=== PATIENT | female | born 1985 | race Caucasian/White ===

== ENCOUNTER → 2016-11-16 | Outpatient (CLI) | payer MEDICARE, MEDICAID ==
--- NOTE | 2016-11-16 17:31 | REP ---
OB ULTRASOUND: REASON: Evaluate placenta. COMPARISON: None. Multiple sonographic images of the gravid uterus show a single living intrauterine gestation in the cephalic presentation. The placenta is posterior with evidence of complete placenta previa. Doppler interrogation of the heart shows a heart rate of 157 beats per minute. The subjective aminotic fluid volume is within normal limits. The cervix measures 3.1 cm in length and it is closed. Evaluation of the maternal adnexal spaces showed no abnormalities. The umbilical cord is seen draping over the neck area. A nuchal cord can not be ruled out by this exam. BPD 7.9 cm = 31 weeks 4 days HC 28.2 cm = 30 weeks 6 days AC 25.6 cm = 29 weeks 5 days FL 6.0 cm = 31 weeks 0 days Estimated weight is 1567 grams which is at the 49th percentile for a 30 week 1 day gestational age. The calculated amniotic fluid index is 15.0 within expected range of 9.0-23.4. The fetus was too large for a complete anatomical screen. Evaluation of the anatomical structures showed o evidence of an anomaly, however the choroid plexus and left ventricular outflow tract were not well imaged. IMPRESSION: Single living intrauterine gestation as described above with an estimated gestational age of 30 weeks 5 days via composite criteria and an estimated date of delivery of 01/20/2017 by today's exam. A complete placenta previa was identified. anatomical screen as described above. Clinical correlation and close followup is recommended. Signed by Richar Belle DO 11/17/2016 05:19 P
== END ==
LOC: M RAD 13:32
PROVIDERS: ATTEND Obstetrics & Gynecology
DX: Z36 Encounter for antenatal screening of mother (principal); Z3A.30 30 weeks gestation of pregnancy

== ENCOUNTER → 2016-12-09 | Outpatient (CLI) | payer MEDICARE, MEDICAID ==
[2016-12-09 19:52] LABS: ALBUMIN 2.3 GM/DL (3.2-5.2); ALBUMIN/GLOBULIN RATIO 0.55 (1.00-1.93); BILIRUBIN,DIRECT 0.3 MG/DL (0.0-0.2); BILIRUBIN,TOTAL 0.4 MG/DL (0.2-1.0); TOTAL PROTEIN 6.5 GM/DL (6.4-8.2)
== END ==
LOC: M SMT 15:09
PROVIDERS: ATTEND Specialist
DX: O26.613 Liver and biliary tract disorders in pregnancy, third trimester (principal); Z3A.00 Weeks of gestation of pregnancy not specified

== ENCOUNTER 2016-12-23 07:43 | Outpatient (CLI) | payer MEDICARE, MEDICAID ==
[~2016-12-23] VITALS: Ht 152.4 cm; Wt 82.0 kg
[2016-12-23 08:10] VITALS: BP 111/65
[2016-12-23] MEDS ORDERED: ONDANSETRON 4 MG ORAL DISINTEGRATING TAB (S0181) PO PRN (09:00)
[2016-12-23] MEDS ORDERED: ALLE24TA8 PO (09:21)
[2016-12-23] MEDS ORDERED: PRENTAB9 PO (09:21)
[2016-12-23 09:23] LABS: MEAN CORPUSCULAR HEMOGLOBIN 30.9 pg (27.0-33.0); MEAN CORPUSCULAR HGB CONC 33.9 g/dl (32.0-36.5); MEAN CORPUSCULAR VOLUME 91.1 fl (80.0-96.0); RED CELL DISTRIBUTION WIDTH 13.8 % (11.5-14.5); WHITE BLOOD COUNT 9.8 K/mm3 (4.0-10.0)
[2016-12-23 09:48] LABS: ALBUMIN 2.2 GM/DL (3.2-5.2); ALBUMIN/GLOBULIN RATIO 0.55 (1.00-1.93); BILIRUBIN,DIRECT 0.1 MG/DL (0.0-0.2); BILIRUBIN,TOTAL 0.3 MG/DL (0.2-1.0); TOTAL PROTEIN 6.2 GM/DL (6.4-8.2)
[2016-12-23 10:04] VITALS: BP 121/75
== END 2016-12-23 11:40 | disposition home or self-care (01) ==
LOC: M LDO 07:43
PROVIDERS: ATTEND Advanced Practice Midwife
DX: O99.89 Other specified diseases and conditions complicating pregnancy, childbirth and the puerperium (principal); Z3A.35 35 weeks gestation of pregnancy; K52.9 Noninfective gastroenteritis and colitis, unspecified; Z88.0 Allergy status to penicillin; R11.2 Nausea with vomiting, unspecified; R19.7 Diarrhea, unspecified

== ENCOUNTER → 2018-07-15 | Outpatient (REF) | payer MEDICARE, MEDICAID ==
[~2018-07-15] MED LIST: ALLE24TA8 PO; PRENTAB9 PO
== END ==
LOC: M LAB REF 16:45
PROVIDERS: ATTEND Specialist
DX: Z34.81 Encounter for supervision of other normal pregnancy, first trimester (principal); Z3A.12 12 weeks gestation of pregnancy; N39.9 Disorder of urinary system, unspecified

== ENCOUNTER → 2018-08-18 | Outpatient (REF) | payer MEDICARE, MEDICAID | LOC: M LAB REF 13:00 | PROVIDERS: ATTEND Advanced Practice Midwife | DX: Z34.82 Encounter for supervision of other normal pregnancy, second trimester (principal); Z3A.00 Weeks of gestation of pregnancy not specified ==

== ENCOUNTER 2018-12-04 21:20 | Outpatient (CLI) | payer MEDICARE, MEDICAID ==
[~2018-12-04] VITALS: Ht 152.4 cm; Wt 81.7 kg
[~2018-12-04 21:20] MED LIST changes: +ALLE24TA7 PO; -ALLE24TA8 PO
[2018-12-04 21:41] VITALS: BP 105/64
[2018-12-04 22:39] VITALS: BP 101/62
== END 2018-12-04 22:45 | disposition home or self-care (01) ==
LOC: M LDO 21:20
PROVIDERS: ATTEND Specialist
DX: O26.893 Other specified pregnancy related conditions, third trimester (principal); R10.2 Pelvic and perineal pain; O47.03 False labor before 37 completed weeks of gestation, third trimester; Z3A.33 33 weeks gestation of pregnancy

== ENCOUNTER 2018-12-12 16:57 | Outpatient (CLI) | payer MEDICARE, MEDICAID ==
[~2018-12-12] VITALS: Ht 152.4 cm; Wt 82.6 kg
[2018-12-12] MEDS ORDERED: ONDA4TAB6 PO (17:09)
[2018-12-12 17:15] VITALS: BP 88/50
[2018-12-12 17:58] VITALS: BP 114/64
[2018-12-12 19:40] VITALS: BP 112/67
--- NOTE | 2018-12-12 20:37 | REPVR ---
EXAM: US Biophysical Profile Without Non-Stress Test EXAM DATE/TIME: 12/12/2018 7:30 PM CLINICAL HISTORY: 33 years old, female; Signs and symptoms; status abnormalities: ; movements, decreased; Single gestation; Third trimester (28 wks 0 days until delivery); ; Additional info: Decreased movements TECHNIQUE: Imaging protocol: US biophysical profile without non-stress testing. COMPARISON: US OBS SINGEL GEST 11/16/2016 1:42 PM FINDINGS: Other findings: Single intrauterine fetus in cephalic presentation. heartbeat of 128 beats per minute. Closed cervix measuring 4.1 cm. Anterior placenta. The DADA is 13.7 cm and adequate for a score of 2. breathing movements are present for a score of 2. movement is present for a score of 2. tone was normal for a score of 2. Total biophysical profile score is 8/8. Breathin/2 Gross body movements: 2/2 tone: 2/2 Qualitative amniotic fluid: 2/2 IMPRESSION: 1. Normal biophysical profile score of 8/8. 2. Single live intrauterine fetus in cephalic presentation. 3. Normal DADA of 13.7 cm. Electronically signed by: Deangelo Wiggins On 12/12/2018 20:36:40 PM
--- NOTE | 2018-12-12 21:15 | IPNPDOC ---
Text Note Date of Service The patient was seen on 12/12/18. NOTE Subjective: Patient is a 33-year-old female who is a at 34.2 weeks gestation with and CAITLYN of 01/21/19 based off of her LMP and consistent with her first trimester ultrasound. She initiated care in her first trimester with [facility]. Her has been complicated by a history of a section. She presents to L&D with complaints of decreased movement. She reports only having 5 movements in the morning until afternoon. She denies contractions, leaking of fluid, or vaginal bleeding. The first 1.5 hours she reported 6 movements and the last hour she was here she reported 13 movements in an hour. Objective: VS and ultrasound: see below. FHR: 120, moderate variability, positive accelerations, no decelerations. Contractions: occasional. A+O x3. Regular respirations. Abdomen gravid and nontender to touch. Assessment: IUP at 34.2 weeks gestation, Category I FHR tracing, decreased movements Plan: Patient discharged to home after BPP of 02/23. Patient has an appointment on Wednesday and instructed to keep appointment. Reviewed access to care, kick count, labor signs, and danger signs to report. VS,Fishbone, I+O VS, Fishbone, I+O Vital Signs Date Time Temp Pulse Resp B/P (MAP) Pulse Ox O2 Delivery O2 Flow Rate FiO2 12/12/18 19:40 97.1 71 16 112/67 (82) EXAM: US Biophysical Profile Without Non-Stress Test EXAM DATE/TIME: 12/12/2018 7:30 PM CLINICAL HISTORY: 33 years old, female; Signs and symptoms; status abnormalities: ; movements, decreased; Single gestation; Third trimester (28 wks 0 days until delivery); ; Additional info: Decreased movements TECHNIQUE: Imaging protocol: US biophysical profile without non-stress testing. COMPARISON: US OBS SINGEL GEST 11/16/2016 1:42 PM FINDINGS: Other findings: Single intrauterine fetus in cephalic presentation. heartbeat of 128 beats per minute. Closed cervix measuring 4.1 cm. Anterior placenta. The DADA is 13.7 cm and adequate for a score of 2. breathing movements are present for a score of 2. movement is present for a score of 2. tone was normal for a score of 2. Total biophysical profile score is 8/8. Breathin/2 Gross body movements: 2/2 tone: 2/2 Qualitative amniotic fluid: 2/2 IMPRESSION: 1. Normal biophysical profile score of 8/8. 2. Single live intrauterine fetus in cephalic presentation. 3. Normal DADA of 13.7 cm. Electronically signed by: Deangelo Wiggins On 12/12/2018 20:36:40 PM ALFONZO CORONA CNM December 12, 2018 21:15
== END 2018-12-12 20:05 | disposition home or self-care (01) ==
LOC: M LDO 16:57
PROVIDERS: ATTEND Advanced Practice Midwife
DX: O36.8130 Decreased fetal movements, third trimester, not applicable or unspecified (principal); Z3A.34 34 weeks gestation of pregnancy

== ENCOUNTER → 2018-12-30 | Outpatient (REF) | payer MEDICARE, MEDICAID ==
[~2018-12-30] MED LIST changes: +ONDA4TAB6 PO
== END ==
LOC: M LAB REF 17:05
PROVIDERS: ATTEND Advanced Practice Midwife
DX: Z36.85 Encounter for antenatal screening for Streptococcus B (principal); Z3A.00 Weeks of gestation of pregnancy not specified

== ENCOUNTER 2019-01-15 01:08 | Inpatient (IN) | payer MEDICARE, MEDICAID ==
[~2019-01-15] VITALS: Ht 152.4 cm; Wt 86.1 kg
[2019-01-15] VITALS (48 sets, daily range): BP systolic 76–130; BP diastolic 49–78
[2019-01-15] MEDS ORDERED: LACTATED RINGER'S 1000 ML IV STA (01:39)
[2019-01-15 01:55] LABS: HEMATOCRIT 39.4 % (36.0-47.0); HEMOGLOBIN 13.1 g/dl (12.0-15.5); MEAN CORPUSCULAR HEMOGLOBIN 30.4 pg (27.0-33.0); MEAN CORPUSCULAR HGB CONC 33.2 g/dl (32.0-36.5); MEAN CORPUSCULAR VOLUME 91.4 fl (80.0-96.0); PLATELET COUNT, AUTOMATED 163 10^3/uL (150-450); RED BLOOD COUNT 4.31 10^6/uL (4.00-5.40); WHITE BLOOD COUNT 10.4 10^3/uL (4.0-10.0)
[2019-01-15] MEDS ORDERED: BUTORPHANOL 2 MG/ML INJ (J0595) IV ONE (02:00)
[2019-01-15] MEDS ORDERED: PROMETHAZINE INJ 25 MG/ML VIAL (J2550) IV ONE (02:00)
[2019-01-15] MEDS ORDERED: LR 1,000 ML IV SCH ×3 (02:30→13:30)
[2019-01-15] MEDS ORDERED: OXYTOCIN DRIP 30 UNITS in IV 1 EA IV SCH ×2 (05:15→13:30)
[2019-01-15] MEDS ORDERED: OXYTOCIN 30 UNITS IN 0.9% NaCl 500ML IV BAG (J2590) As Ordered ONE (05:24)
[2019-01-15] MEDS ORDERED: FENTANYL 2MCG/ML ROPIVACAINE 0.2% IN 0.9% NACL 100ML IVBAG As Ordered ONE (08:55)
[2019-01-15] MEDS ORDERED: diphenhydrAMINE INJ 50MG/ML VIAL (J1200) IV PRN (10:45)
[2019-01-15] MEDS ORDERED: ONDANSETRON 4MG/2ML VIAL (J2405) IV PRN ×2 (10:45→13:30)
[2019-01-15] MEDS ORDERED: EPIDURAL COMMENT XX SCH (10:45)
[2019-01-15] MEDS ORDERED: NALOXONE INJ 0.4 MG/1 ML VIAL (J2310) IV PRN (10:45)
[2019-01-15] MEDS ORDERED: ePHEDrine SULFATE 25 MG/5 ML(5MG/ML) SYRINGE IV PRN (10:45)
[2019-01-15] MEDS ORDERED: REFRIGERATOR IV KEYS XX PRN (10:45)
[2019-01-15] MEDS ORDERED: EPIDURAL/PCA KEYS XX PRN (10:45)
[2019-01-15] MEDS ORDERED: LACTATED RINGER'S 1000 ML IV PRN (10:45)
[2019-01-15] MEDS ORDERED: FENTANYL/ROPIVACAINE/NACL BAG 100 ML EPIDURAL SCH (10:45)
[2019-01-15 13:04] LABS: CORD GAS ABE A -8.3; CORD GAS ABE V -6.1; CORD GAS HCO3 A 23.7 MEQ/L; CORD GAS HCO3 V 25.1 MEQ/L; CORD GAS O2 SAT A 23.1 %; CORD GAS O2 SAT V 26.5 %; CORD GAS PCO2 A 79.4 mmHg; CORD GAS PCO2 V 75.5 mmHg; CORD GAS PH A 7.092 UNITS; CORD GAS PH V 7.14 UNITS; CORD GAS PO2 A 15.9 mmHg; CORD GAS SBC A 16.2 MEQ/L; CORD GAS SBC V 17.8 MEQ/L; CORD GAS TCO2 A 26.1 MEQ/L; CORD GAS TCO2 V 27.4 MEQ/L
[2019-01-15] MEDS ORDERED: MEASLES,MUMPS,RUBELLA VACCINE INJ (MMR-II) (90707) SC SCH (13:30)
[2019-01-15] MEDS ORDERED: ACETAMINOPHEN 500 MG TAB PO PRN (13:30)
[2019-01-15] MEDS ORDERED: PROMETHAZINE 25 MG TAB PO PRN (13:30)
[2019-01-15] MEDS ORDERED: IBUPROFEN 600 MG TAB PO PRN (13:30)
[2019-01-15] MEDS ORDERED: DIBUCAINE 1% OINTMENT 30GM TOP PRN (13:30)
[2019-01-15] MEDS ORDERED: DOCUSATE SODIUM 100 MG CAP PO PRN (13:30)
[2019-01-15] MEDS ORDERED: RHOGAM 300 MCG (1500 IU) INJ (J2790) IM SCH (13:30)
[2019-01-15 15:07] LABS: HEMATOCRIT 32.6 % (36.0-47.0); HEMOGLOBIN 10.4 g/dl (12.0-15.5); MEAN CORPUSCULAR HEMOGLOBIN 30.5 pg (27.0-33.0); MEAN CORPUSCULAR HGB CONC 31.9 g/dl (32.0-36.5); MEAN CORPUSCULAR VOLUME 95.6 fl (80.0-96.0); PLATELET COUNT, AUTOMATED 174 10^3/uL (150-450); RED BLOOD COUNT 3.41 10^6/uL (4.00-5.40); WHITE BLOOD COUNT 19.2 10^3/uL (4.0-10.0)
[2019-01-15 15:17] LABS: INR 0.97; PROTHROMBIN TIME 12.6 SECONDS (11.8-14.0)
[2019-01-15 15:18] LABS: PARTIAL THROMBOPLASTIN TIME 22.8 SECONDS (25.0-38.4)
--- NOTE | 2019-01-15 15:20 | REP ---
Clinical: Chest pain and tachycardia . Comparison: None . Findings: The mediastinum and cardiac silhouette are stable and within normal limits for portable technique. The lung east are clear without acute consolidation, effusion, or pneumothorax. Skeletal structures are intact. Impression: No acute cardiopulmonary process appreciated. Electronically Signed by Paresh Russo MD 01/15/2019 03:12 P
[2019-01-15 15:33] LABS: ALBUMIN 1.7 GM/DL (3.2-5.2); ALT/SGPT 40 U/L (12-78); BILIRUBIN,TOTAL 0.3 MG/DL (0.2-1.0); BLOOD UREA NITROGEN 11 MG/DL (7-18); CALCIUM LEVEL 7.7 MG/DL (8.5-10.1); CARBON DIOXIDE LEVEL 23 MEQ/L (21-32); CHLORIDE LEVEL 109 MEQ/L (98-107); CK-MB VALUE MASS 17.1 NG/ML (<3.6); CPK CREATINE PHOSPHOKINASE 515 U/L (26-192); GLOMERULAR FILTRATION RATE > 60.0 (>60); GLUCOSE, FASTING 155 MG/DL (70-100); MB/CK RELATIVE INDEX 3.32 (< OR =4); POTASSIUM SERUM 5.2 MEQ/L (3.5-5.1); SODIUM LEVEL 139 MEQ/L (136-145); TOTAL PROTEIN 4.7 GM/DL (6.4-8.2); TROPONIN I < 0.02 NG/ML (< 0.10)
[2019-01-15] MEDS: IBUPROFEN 800 MG TAB PO PRN ×2 (16:35→23:42)
[2019-01-15] MEDS: ACETAMINOPHEN TAB 650MG DOSE (2X325MG) PO PRN ×2 (19:21→23:16)
[2019-01-16 00:15] VITALS: BP 113/70
--- NOTE | 2019-01-16 01:26 | ECGEPIP ---
[facility] Test Date: 2019-01-15 Pat Name: SOHAN BROWN Department: Room: [place] [address] Gender: Female Hospice Rn: SILVIA : [id number] Requested By: SOLOMON Quiroz Order Number: [id number] Reading MD: Av Diehl Measurements Intervals [place] Rate: 103 P: 47 NV: 132 QRS: 60 QRSD: 75 T: 13 QT: 337 QTc: 442 Interpretive Statements SINUS TACHYCARDIA ABNORMAL RHYTHM ECG No prior tracing in the system Electronically Signed on 01-16-2019 1:25:58 EDT by Av Diehl
[2019-01-16] MEDS: IBUPROFEN 800 MG TAB PO PRN ×2 (05:37→14:15)
[2019-01-16 06:00] VITALS: BP 109/63
[2019-01-16] MEDS ORDERED: IBUP80TA PO (08:25)
[2019-01-16] MEDS ORDERED: PRENATAL VITAMINS CHEWABLE TABLET PO SCH (09:00)
[2019-01-16] MEDS ORDERED: MOM 30ML SUSPENSION UDC PO ONE (11:30)
== END 2019-01-16 18:25 | disposition home or self-care (01) | DRG 807 ==
LOC: M LDO 01:08 → M LDI 01:24 → M OBS 23:50
PROVIDERS: ADMIT Obstetrics & Gynecology; ATTEND Obstetrics & Gynecology
PROC: 10D07Z3 Extraction of Products of Conception, Low Forceps, Via Natural or Artificial Opening (ICD-10-PCS; principal; 2019-01-15)
PROC: 0KQM0ZZ Repair Perineum Muscle, Open Approach (ICD-10-PCS; 2019-01-15)
DX: O34.211 Maternal care for low transverse scar from previous cesarean delivery (principal); Z37.0 Single live birth; Z3A.39 39 weeks gestation of pregnancy; O70.1 Second degree perineal laceration during delivery; O76 Abnormality in fetal heart rate and rhythm complicating labor and delivery

== ENCOUNTER → 2019-08-28 | Outpatient (CLI) | payer MEDICARE, MEDICAID ==
[~2019-08-28] MED LIST changes: +IBUP80TA PO
[2019-08-28 11:59] LABS: HEMATOCRIT 47.3 % (36.0-47.0); HEMOGLOBIN 14.7 g/dl (12.0-15.5); MEAN CORPUSCULAR HEMOGLOBIN 29.2 pg (27.0-33.0); MEAN CORPUSCULAR HGB CONC 31.1 g/dl (32.0-36.5); PLATELET COUNT, AUTOMATED 238 10^3/uL (150-450); RED BLOOD COUNT 5.03 10^6/uL (4.00-5.40); WHITE BLOOD COUNT 6.3 10^3/uL (4.0-10.0)
[2019-08-28 12:43] LABS: ALBUMIN 4.1 GM/DL (3.2-5.2); ALT/SGPT 77 U/L (12-78); BILIRUBIN,TOTAL 0.6 MG/DL (0.2-1.0); BLOOD UREA NITROGEN 19 MG/DL (7-18); CALCIUM LEVEL 9.3 MG/DL (8.5-10.1); CARBON DIOXIDE LEVEL 30 MEQ/L (21-32); CHLORIDE LEVEL 104 MEQ/L (98-107); CREATININE FOR GFR 0.83 MG/DL (0.55-1.30); FREE T4 0.97 NG/DL (0.76-1.46); GLOMERULAR FILTRATION RATE > 60.0 (>60); GLUCOSE, FASTING 80 MG/DL (70-100); POTASSIUM SERUM 4.5 MEQ/L (3.5-5.1); SODIUM LEVEL 138 MEQ/L (136-145); THYROID STIMULATING HORMONE 0.288 uIU/ML (0.358-3.740); TOTAL PROTEIN 7.8 GM/DL (6.4-8.2)
== END ==
LOC: M PLALAB 10:18
PROVIDERS: ATTEND Specialist
DX: R53.83 Other fatigue (principal)
CPT/HCPCS: 36415; 80053; 84439; 84443; 85027; G0463

== ENCOUNTER → 2021-12-10 | Outpatient (CLI) | payer MEDICARE, MEDICAID ==
[2021-12-10 17:11] LABS: HEMATOCRIT 41.7 % (36.0-47.0); HEMOGLOBIN 13.9 g/dl (12.0-15.5); MEAN CORPUSCULAR HEMOGLOBIN 30.5 pg (27.0-33.0); MEAN CORPUSCULAR HGB CONC 33.3 g/dl (32.0-36.5); MEAN CORPUSCULAR VOLUME 91.4 fl (80.0-96.0); PLATELET COUNT, AUTOMATED 260 10^3/uL (150-450); RED BLOOD COUNT 4.56 10^6/uL (4.00-5.40)
[2021-12-10 18:14] LABS: HEPATITIS C VIRUS ABY INDEX 0.1 INDEX (<0.8); HIV 1&2 SCREEN CENTAUR NEGATIVE (NEGATIVE)
== END ==
LOC: M PLALAB 15:23
PROVIDERS: ATTEND Obstetrics & Gynecology
DX: O26.21 Pregnancy care for patient with recurrent pregnancy loss, first trimester (principal)

== ENCOUNTER → 2022-02-05 | Outpatient (CLI) | payer MEDICARE, MEDICAID | LOC: M WHC 15:52 | PROVIDERS: ATTEND Specialist | DX: Z34.82 Encounter for supervision of other normal pregnancy, second trimester (principal) ==

== ENCOUNTER → 2022-03-04 | Outpatient (CLI) | payer MEDICARE, MEDICAID | LOC: M WHC 13:22 | PROVIDERS: ATTEND Specialist | DX: Z34.82 Encounter for supervision of other normal pregnancy, second trimester (principal); Z3A.20 20 weeks gestation of pregnancy ==

== ENCOUNTER → 2022-05-28 | Outpatient (CLI) | payer MEDICARE, MEDICAID | LOC: M WHC 13:23 | PROVIDERS: ATTEND Specialist | DX: O44.43 Low lying placenta NOS or without hemorrhage, third trimester (principal); Z3A.00 Weeks of gestation of pregnancy not specified ==

== ENCOUNTER → 2022-06-24 | Outpatient (REF) | payer MEDICARE, MEDICAID | LOC: M SFHCWAGY 13:31 | PROVIDERS: ATTEND Specialist | DX: Z34.83 Encounter for supervision of other normal pregnancy, third trimester (principal) ==

== ENCOUNTER 2022-06-30 15:46 | Outpatient (CLI) | payer MEDICARE, MEDICAID ==
[~2022-06-30] VITALS: Ht 152.4 cm; Wt 88.5 kg
[2022-06-30] MEDS ORDERED: FERR325T81 PO (16:13)
[2022-06-30] MEDS ORDERED: tumeric PO (16:13)
[2022-06-30] MEDS ORDERED: magnesium PO (16:13)
[2022-06-30 16:15] VITALS: BP 119/72
[2022-06-30] MEDS ORDERED: ACETAMINOPHEN 500 MG TAB PO PRN (16:50)
[2022-06-30 17:21] VITALS: BP 150/74
[2022-06-30 17:54] VITALS: BP 107/61
[2022-06-30 18:01] LABS: APPEARANCE, URINE MANUAL HAZY (CLEAR); COLOR, URINE MANUAL YELLOW (YELLOW)
[2022-06-30 18:02] LABS: BILIRUBIN, URINE MANUAL NEGATIVE (NEGATIVE); BLOOD URINE MANUAL NEGATIVE (NEGATIVE); GLUCOSE, URINE (UA) MANUAL NEGATIVE (NEGATIVE); KETONE, URINE MANUAL 2+ mg/dL (NEGATIVE); LEUKOCYTE ESTERASE, URINE MAN TRACE (NEGATIVE); NITRITE, URINE MANUAL NEGATIVE (NEGATIVE); PH,URINE MAN 5.5 UNITS (5.0 - 7.0); PROTEIN, URINE MANUAL TRACE mg/dL (NEGATIVE); SPECIFIC GRAVITY,URINE MANUAL 1.025 (1.002-1.035); UROBILINOGEN, URINE MANUAL NORMAL (NORMAL)
[2022-06-30 18:15] LABS: BACTERIA, URINE LARGE AMOUNT; CALCIUM OXALATE CRYSTALS,URINE SMALL AMOUNT /hpf; MUCUS, URINE LARGE AMOUNT (NEGATIVE); SQUAMOUS EPITHELIAL CELL URINE LARGE AMOUNT /hpf (SMALL AMT); YEAST, URINE MOD AMOUNT
[2022-06-30 18:16] LABS: HYALINE CAST, URINE NONE SEEN /lpf (0-1)
[2022-06-30 18:32] VITALS: BP 146/83
[2022-06-30 19:03] VITALS: BP 132/79
== END 2022-06-30 19:10 | disposition home or self-care (01) ==
LOC: M LDO 15:46
PROVIDERS: ATTEND Obstetrics & Gynecology
DX: O47.1 False labor at or after 37 completed weeks of gestation (principal); O26.893 Other specified pregnancy related conditions, third trimester; M54.50 Low back pain, unspecified; O09.513 Supervision of elderly primigravida, third trimester; Z3A.37 37 weeks gestation of pregnancy
CPT/HCPCS: 59025; 81000; 87086; G0378

== ENCOUNTER 2022-07-08 08:46 | Outpatient (CLI) | payer MEDICARE, MEDICAID ==
[~2022-07-08] VITALS: Ht 152.4 cm; Wt 89.4 kg
[~2022-07-08 08:46] MED LIST changes: +FERR325T81 PO; +magnesium PO; +tumeric PO
[2022-07-08 09:06] VITALS: BP 119/75
[2022-07-08 09:41] VITALS: BP 125/71
[2022-07-08] MEDS ORDERED: LACTATED RINGER'S 1000 ML IV ONE (09:45)
[2022-07-08] MEDS ORDERED: LR 1,000 ML IV SCH (09:50)
[2022-07-08] MEDS ORDERED: HOME MED LIST COMPLETE! XX SCH (09:55)
[2022-07-08 10:43] LABS: HEMATOCRIT 38.1 % (36.0-47.0); HEMOGLOBIN 12.3 g/dl (12.0-15.5); MEAN CORPUSCULAR HEMOGLOBIN 30.1 pg (27.0-33.0); MEAN CORPUSCULAR HGB CONC 32.3 g/dl (32.0-36.5); MEAN CORPUSCULAR VOLUME 93.2 fl (80.0-96.0); PLATELET COUNT, AUTOMATED 168 10^3/uL (150-450); RED BLOOD COUNT 4.09 10^6/uL (4.00-5.40); WHITE BLOOD COUNT 9.7 10^3/uL (4.0-10.0)
[2022-07-08 11:14] VITALS: BP 115/62
[2022-07-08 13:05] VITALS: BP 132/75
[2022-07-08 14:34] VITALS: BP 120/59
== END 2022-07-08 13:30 | disposition home or self-care (01) ==
LOC: M LDO 08:46
PROVIDERS: ATTEND Advanced Practice Midwife
DX: O47.1 False labor at or after 37 completed weeks of gestation (principal); O09.513 Supervision of elderly primigravida, third trimester; O34.219 Maternal care for unspecified type scar from previous cesarean delivery; O99.113 Other diseases of the blood and blood-forming organs and certain disorders involving the immune mechanism complicating pregnancy, third trimester; Z86.711 Personal history of pulmonary embolism; Z87.59 Personal history of other complications of pregnancy, childbirth and the puerperium; Z88.0 Allergy status to penicillin; Z88.1 Allergy status to other antibiotic agents; Z3A.38 38 weeks gestation of pregnancy